=== PATIENT | female | born 1955 | race Caucasian/White ===

== ENCOUNTER → 2017-01-15 | Outpatient (CLI) | payer OTHER ==
--- NOTE | 2017-01-15 13:19 | RAD ---
EXAM DESCRIPTION: XR ABDOMEN 1 VIEW (KUB) CLINICAL HISTORY: PERSONAL HISTORY OF RENAL CALCULI COMPARISON: None Available. TECHNIQUE: KUB FINDINGS: There is no evidence of calcific density overlying the renal outlines with normal bowel gas pattern noted. Extensive pelvic phleboliths bilaterally are present and likely obscured any distal ureteral stone. The bony structures are mildly degenerative. No soft tissue masses are noted. IMPRESSION: Essentially normal abdomen with extensive pelvic phleboliths both sides of the pelvis. No definite renal calculi noted. Electronically signed by: Brody Edwards MD 01/15/2017 1:19 PM CDT
== END | disposition home or self-care (01) ==
LOC: YCFC.O 09:51
PROVIDERS: ATTEND Nurse Practitioner Family
DX: R68.2 Dry mouth, unspecified (principal); R73.09 Other abnormal glucose; R30.0 Dysuria; Z87.442 Personal history of urinary calculi; R03.0 Elevated blood-pressure reading, without diagnosis of hypertension; Z13.29 Encounter for screening for other suspected endocrine disorder

== ENCOUNTER → 2017-01-20 | Outpatient (CLI) | payer OTHER ==
--- NOTE | 2017-01-21 14:17 | MAM ---
History: Well woman exam. Date of exam: 01/20/2017 Services provided: Bilateral full field digital screening mammography. CAD, the images were reviewed with R2 computer aided detection. FINDINGS: Glandular tissue is scattered glandular contour with nodular pattern. No prior study is currently available for comparison. No dominant mass, architectural distortion or clustered microcalcification. IMPRESSION: Benign exam Recommendation: Routine annual mammography BIRAD CATEGORY: 2 BENIGN Electronically signed by: Amalia Ding MD 01/21/2017 2:17 PM CDT Workstation: [id number]
--- NOTE | 2017-01-21 17:45 | CT ---
EXAM DESCRIPTION: Abdoment/Pelvis w/o Contrast CLINICAL HISTORY: ABN FINDINGS severe left-sided abdominal pain, history of kidney stones COMPARISON: KUB January 15, 2017 TECHNIQUE: CT of the abdomen and Pelvis was performed without IV contrast. This exam was performed according to our departmental dose-optimization program, which includes automated exposure control, adjustment of the mA and/or kV according to patient size and/or use of iterative reconstruction technique. FINDINGS: The lung bases are unremarkable. There is no abdominal aortic aneurysm. No adenopathy, ascites or pneumoperitoneum. The gallbladder surgically absent. There is no hiatal hernia or gastric wall thickening. The liver, spleen, pancreas, adrenals and kidneys are unremarkable for noncontrast technique. There are multiple pelvic phleboliths, but no ureteral calculus, hydronephrosis or perinephric inflammation is noted. No dilated small bowel loops. No mesenteric inflammation or mass. No bladder wall thickening. The uterus and ovaries are not identified, please correlate with surgical history. Is a moderate to large amount of stool and gas scattered throughout the colon. Colonic diverticular disease is noted without pericolonic inflammation to suggest diverticulitis. No colonic wall thickening. The terminal ileum and ileocecal junction are unremarkable. The appendix is not identified, but there are no secondary signs of appendicitis. There are mild degenerative changes in the lumbar spine at multiple levels. No suspicious bone lesion. IMPRESSION: Moderate amount of colonic stool and gas and colonic diverticulosis, but no diverticulitis, bowel obstruction, urinary tract calculus or other acute abnormality in the abdomen or pelvis to explain left-sided abdominal pain. Electronically signed by: Milton Dyson MD 01/21/2017 5:45 PM CDT Workstation: [id number]
== END | disposition home or self-care (01) ==
LOC: YCFC.O 08:28
PROVIDERS: ATTEND Nurse Practitioner Family
DX: R93.41 Abnormal radiologic findings on diagnostic imaging of renal pelvis, ureter, or bladder (principal); Z13.29 Encounter for screening for other suspected endocrine disorder
CPT/HCPCS: 36415; 74176; 84436; 84443; G0202

== ENCOUNTER 2017-03-05 15:48 | Emergency (ER) | payer OTHER ==
--- NOTE | 2017-03-05 16:22 | ED.PDOC ---
History of Present Illness - General Chief Complaint: Cardiovascular Problem Stated Complaint: palpitations Time Seen by Provider: 03/05/17 16:21 Source: patient Exam Limitations: no limitations - History of Present Illness Initial Comments: Nataly Ocampo 61 y/o female stated that she was walking in the shelter to visit a resident had felt light headed and almost passed out that she fell and almost hit a chair.Denies chronic medical illness. Timing/Duration: 1-3 hours Severity: moderate Improving Factors: nothing Worsening Factors: nothing Associated Symptoms: chest pain - mostly pressure ,non radiating ,no diaphoresis , other - palpitations Allergies/Adverse Reactions: Allergies Esomeprazole [From Nexium] Allergy (Verified 03/05/17 16:21) Rash Home Medications: Ambulatory Orders Amlodipine Besylate 10 mg PO DAILY #20 tab 03/05/17 Thyroid [[place] Thyroid] 30 mg PO DAILY 03/05/17 Review of Systems - Review of Systems Constitutional: States: no symptoms reported EENTM: States: no symptoms reported Respiratory: States: no symptoms reported Cardiology: States: no symptoms reported, chest pain, other - near syncope Gastrointestinal/Abdominal: States: no symptoms reported Genitourinary: States: no symptoms reported Musculoskeletal: States: no symptoms reported Skin: States: no symptoms reported Neurological: States: headache - dull top of her head Endocrine: States: no symptoms reported Hematologic/Lymphatic: States: no symptoms reported Past Medical History (General) - Patient Medical History Hx Seizures: No Hx Asthma: No Hx Hypertension: No Surgical History: appendectomy, cholecystectomy, other - hysterectomy foot ,back Family Medical History - Family History Mother Family History: No Known Physical Exam - Physical Exam General Appearance: Alert, No apparent distress Eye Exam: bilateral normal Ears, Nose, Throat: hearing grossly normal, normal ENT inspection, normal pharynx Neck: non-tender, full range of motion, supple Respiratory: chest non-tender, lungs clear Cardiovascular/Chest: normal peripheral pulses, regular rate, rhythm, no edema, no gallop, no murmur Peripheral Pulses: radial,right: 1+, radial,left: 1+ Gastrointestinal/Abdominal: normal bowel sounds, non tender, soft, no organomegaly, no pulsatile mass Back Exam: normal inspection, no CVA tenderness, no vertebral tenderness Neurologic: no motor/sensory deficits, alert, oriented x 3, other - pronator drift negative,Romberg negative Skin Exam: normal color, warm/dry Progress - Progress Progress: 03/05/17 20:[address] head for her headache but stated easing up. - Results/Orders Results/Orders: 03/05/17 16:21 Telemetry .ONCE EKG Stat Pulse Ox Stat URINALYSIS Stat Laboratory Results - last 24 hr 03/05/17 03/05/17 03/05/17 16:00 16:00 16:00 WBC 6.3 RBC 4.77 Hgb 14.9 Hct 43.4 MCV 91.1 MCH 31.3 H MCHC 34.4 RDW 13.0 Plt Count 198 MPV 8.2 Absolute Neuts (auto) 3.80 Absolute Lymphs (auto) 1.70 Absolute Monos (auto) 0.60 Absolute Eos (auto) 0.20 Absolute Basos (auto) 0.00 Neutrophils % 59.8 Lymphocytes % 27.1 Monocytes % 9.8 H Eosinophils % 2.6 Basophils % 0.7 PT 10.3 INR 0.910 PTT (SP) 29.1 D-Dimer, Quantitative < 230 Sodium 141 Potassium 3.6 Chloride 106 Carbon Dioxide 25 Anion Gap 13.6 BUN 19 H Creatinine 0.92 BUN/Creatinine Ratio 20.7 H Random Glucose 122 H Serum Osmolality 284.8 Calcium 9.3 Magnesium 1.9 Total Bilirubin 0.9 Direct Bilirubin 0.1 Indirect Bilirubin 0.8 AST 29 ALT 34 Alkaline Phosphatase 65 Creatine Kinase 53 CK-MB (CK-2) 1.1 CK-MB (CK-2) % Not Reportable Troponin I < 0.02 B-Natriuretic Peptide 16.4 Serum Total Protein 7.3 Albumin 3.9 TSH 1.89 Urine Opiates Screen Urine Barbiturates Ur Phencyclidine Scrn U Amphetamin/Meth Scrn U Benzodiazepines Scrn U Cocaine Metab Screen U Cannabinoids Screen 03/05/17 16:29 WBC RBC Hgb Hct MCV MCH MCHC RDW Plt Count MPV Absolute Neuts (auto) Absolute Lymphs (auto) Absolute Monos (auto) Absolute Eos (auto) Absolute Basos (auto) Neutrophils % Lymphocytes % Monocytes % Eosinophils % Basophils % PT INR PTT (SP) D-Dimer, Quantitative Sodium Potassium Chloride Carbon Dioxide Anion Gap BUN Creatinine BUN/Creatinine Ratio Random Glucose Serum Osmolality Calcium Magnesium Total Bilirubin Direct Bilirubin Indirect Bilirubin AST ALT Alkaline Phosphatase Creatine Kinase CK-MB (CK-2) CK-MB (CK-2) % Troponin I B-Natriuretic Peptide Serum Total Protein Albumin TSH Urine Opiates Screen Negative Urine Barbiturates Negative Ur Phencyclidine Scrn Negative U Amphetamin/Meth Scrn Negative U Benzodiazepines Scrn Negative U Cocaine Metab Screen Negative U Cannabinoids Screen Negative Laboratory Last Values WBC 6.3 K/mm3 (4.8-10.8) 03/05/17 16:00 RBC 4.77 M/mm3 (4.20-5.40) 03/05/17 16:00 Hgb 14.9 gm/dL (12.0-16.0) 03/05/17 16:00 Hct 43.4 % (36.0-47.0) 03/05/17 16:00 MCV 91.1 fl (81.0-99.0) 03/05/17 16:00 MCH 31.3 pg (27.0-31.0) H 03/05/17 16:00 MCHC 34.4 g/dL (33.0-37.0) 03/05/17 16:00 RDW 13.0 % (11.5-14.5) 03/05/17 16:00 Plt Count 198 K/mm3 (130-400) 03/05/17 16:00 MPV 8.2 fl (7.40-10.4) 03/05/17 16:00 Absolute Neuts (auto) 3.80 K/uL (1.8-6.8) 03/05/17 16:00 Absolute Lymphs (auto) 1.70 K/uL (1.0-3.4) 03/05/17 16:00 Absolute Monos (auto) 0.60 K/uL (0.2-0.8) 03/05/17 16:00 Absolute Eos (auto) 0.20 K/uL (0.0-0.4) 03/05/17 16:00 Absolute Basos (auto) 0.00 K/uL (0.0-0.1) 03/05/17 16:00 Neutrophils % 59.8 % (42.0-78.0) 03/05/17 16:00 Lymphocytes % 27.1 % (20.0-50.0) 03/05/17 16:00 Monocytes % 9.8 % (2.0-9.0) H 03/05/17 16:00 Eosinophils % 2.6 % (1.0-5.0) 03/05/17 16:00 Basophils % 0.7 % (0.0-2.0) 03/05/17 16:00 PT 10.3 SECONDS (9.4-12.5) 03/05/17 16:00 INR 0.910 03/05/17 16:00 PTT (SP) 29.1 SECONDS (25.1-36.5) 03/05/17 16:00 D-Dimer, Quantitative < 230 ng/mL (0-230) 03/05/17 16:00 Sodium 141 mmol/L (135-145) 03/05/17 16:00 Potassium 3.6 mmol/L (3.6-5.0) 03/05/17 16:00 Chloride 106 mmol/L (101-111) 03/05/17 16:00 Carbon Dioxide 25 mmol/L (21-31) 03/05/17 16:00 Anion Gap 13.6 (12-18) 03/05/17 16:00 BUN 19 mg/dL (7-18) H 03/05/17 16:00 Creatinine 0.92 mg/dL (0.6-1.3) 03/05/17 16:00 BUN/Creatinine Ratio 20.7 (10-20) H 03/05/17 16:00 Random Glucose 122 mg/dL (70-105) H 03/05/17 16:00 Serum Osmolality 284.8 mOsm/L (275-295) 03/05/17 16:00 Calcium 9.3 mg/dL (8.4-10.2) 03/05/17 16:00 Magnesium 1.9 mg/dL (1.8-2.5) 03/05/17 16:00 Total Bilirubin 0.9 mg/dL (0.2-1.0) 03/05/17 16:00 Direct Bilirubin 0.1 mg/dL (0-0.2) 03/05/17 16:00 Indirect Bilirubin 0.8 mg/dL (0.2-0.8) 03/05/17 16:00 AST 29 IU/L (10-42) 03/05/17 16:00 ALT 34 IU/L (10-60) 03/05/17 16:00 Alkaline Phosphatase 65 IU/L (42-121) 03/05/17 16:00 Creatine Kinase 53 IU/L (26-140) 03/05/17 16:00 CK-MB (CK-2) 1.1 ng/mL (0.0-4.4) 03/05/17 16:00 CK-MB (CK-2) % Not Reportable 03/05/17 16:00 Troponin I < 0.02 ng/mL (0.01-0.05) 03/05/17 19:11 B-Natriuretic Peptide 16.4 pg/ml (0-100) 03/05/17 16:00 Serum Total Protein 7.3 gm/dL (6.4-8.2) 03/05/17 16:00 Albumin 3.9 g/dl (3.2-5.5) 03/05/17 16:00 TSH 1.89 uIU/mL (0.34-5.60) 03/05/17 16:00 Urine Opiates Screen Negative ng/mL (2000) 03/05/17 16:29 Urine Barbiturates Negative ng/mL (200) 03/05/17 16:29 Ur Phencyclidine Scrn Negative ng/mL (25) 03/05/17 16:29 U Amphetamin/Meth Scrn Negative ng/mL (1000) 03/05/17 16:29 U Benzodiazepines Scrn Negative ng/mL (200) 03/05/17 16:29 U Cocaine Metab Screen Negative ng/mL (300) 03/05/17 16:29 U Cannabinoids Screen Negative ng/mL (50) 03/05/17 16:29 Vital Signs - 8 hr 03/05/17 03/05/17 03/05/17 15:50 16:48 17:48 Temperature 99.2 F Pulse Rate [ 97 H 92 H 88 Apical] Respiratory 18 18 18 Rate Blood Pressure 160/99 154/86 152/79 [Left Arm] O2 Sat by Pulse 99 99 100 Oximetry 03/05/17 03/05/17 18:48 19:54 Temperature Pulse Rate [ 86 74 Apical] Respiratory 18 18 Rate Blood Pressure 146/88 132/90 [Left Arm] O2 Sat by Pulse 99 99 Oximetry - EKG/XRAY/CT EKG: Sinus, Tachy Comments: heart rate 102 - Additional EKG/XRAY/Consults XRAY #2: chest - no acute abnormalities ,tortous aorta Departure - Departure Clinical Impression: Heart palpitations, Syncope, near Chest pain Qualifiers: Chest pain type: unspecified Qualified Code(s): R07.9 - Chest pain, unspecified Hypertension Qualifiers: Hypertension type: essential hypertension Qualified Code(s): I10 - Essential ( primary) hypertension Time of Disposition: 20:30 Disposition: Discharge to Home or Self Care Condition: Good Departure Forms: ED Discharge - Pt. Copy, Patient Portal Self Enrollment Instructions: The DASH Diet, Recommendations to Help Prevent High Blood Pressure, High Blood Pressure Linked to Inflammation, DI for High Blood Pressure , DI for Palpitations Referrals: Kendal Steele NP [Primary Care Provider] - 1-2 Weeks Prescriptions: Amlodipine Besylate 10 mg PO DAILY #20 tab Home Medications: Ambulatory Orders Amlodipine Besylate 10 mg PO DAILY #20 tab 03/05/17 Thyroid [[place] Thyroid] 30 mg PO DAILY 03/05/17 Additional Instructions: RETURN TO EMERGENCY ROOM NEEDED;Follow up with primary md 03/08/2017 call for appointment
[2017-03-05] MEDS ORDERED: SODIUM CHLORIDE 0.9% 1000ML 1,000 ML IVS ONE (16:23)
--- NOTE | 2017-03-05 16:49 | RAD ---
EXAM: Chest,1 View CLINICAL INDICATION: 61-year-old female with palpitations. TECHNIQUE: Single view, AP portable chest was obtained. COMPARISON: None. FINDINGS: Examination findings are limited secondary to lack of inclusion of the bilateral lung apices. Apical pneumothorax cannot be excluded. Unremarkable cardiac and mediastinal silhouette. Heart size is normal. Tortuous thoracic aorta. Lungs are clear without focal opacity, gross pneumothorax or pleural effusions. The visualized bones are within normal limits. IMPRESSION: No acute cardiopulmonary abnormalities. Electronically signed by: Daniela Huang MD 03/05/2017 4:48 PM CDT Workstation: [id number]
[2017-03-05] MEDS ORDERED: amLODIPine BESYLATE 5 MG TAB PO ONE (19:02)
[2017-03-05 20:58] VITALS: BP 132/91; TEMP 98.5; O2SAT 98
== END 2017-03-05 20:52 | disposition home or self-care (01) ==
LOC: ER 15:48
DX: R07.9 Chest pain, unspecified (principal); R55 Syncope and collapse; R00.2 Palpitations; I10 Essential (primary) hypertension; Z88.8 Allergy status to other drugs, medicaments and biological substances
CPT/HCPCS: 36415; 71010; 80048; 80076; 80307; 82550; 82553; 83880; 84443; 84484; 85025; 85379; 85610; 85730; 93005; 96360; 99284; J7030

== ENCOUNTER → 2017-03-08 | Outpatient (CLI) | payer OTHER | END | disposition home or self-care (01) | LOC: YCFC.O 09:59 | PROVIDERS: ATTEND Nurse Practitioner Family | DX: I20.9 Angina pectoris, unspecified (principal); I10 Essential (primary) hypertension; E03.9 Hypothyroidism, unspecified ==

== ENCOUNTER → 2017-09-27 | Outpatient (CLI) | payer OTHER | LOC: LAB.O 18:51 | PROVIDERS: ATTEND Nurse Practitioner Family | DX: J06.9 Acute upper respiratory infection, unspecified (principal) ==

== ENCOUNTER → 2018-05-06 | Outpatient (CLI) | payer OTHER | LOC: LAB.O 08:15 | PROVIDERS: ATTEND Nurse Practitioner Family | DX: E03.9 Hypothyroidism, unspecified (principal); R03.0 Elevated blood-pressure reading, without diagnosis of hypertension ==

== ENCOUNTER → 2018-05-09 | Outpatient (CLI) | payer OTHER ==
--- NOTE | 2018-05-11 10:50 | MAM ---
EXAM DESCRIPTION: 3D Screening BILATERAL : Digital Mammography. CLINICAL HISTORY: 63 years Female SCREENING . No complaints and no personal history of breast cancer. However mother and sister with breast cancer. Childbirth. Postmenopausal over 40 years. No HRT. Bilateral benign breast biopsies. Lifetime risk of developing breast cancer (Tyrer-Cuzick model)(%): 37.2. COMPARISON: 2-D digital screening bilateral study 01/20/2017.. No prior reports available. TECHNIQUE: Bilateral CC and MLO projection full-field images, Digital tomosynthesis mammographic technique. Bilateral digital 2-D full-field MLO images. CAD not utilized. FINDINGS: The breast parenchymal density pattern is: Scattered areas of fibroglandular density. No skin thickening or nipple retraction. Bilateral solitary microcalcifications. Posterior left breast skin mole. Left nipple is inverted. No new focal, stellate mass or density, focal asymmetry , and no suspicious microcalcifications bilaterally. Stable mammograms compared to prior study. Taking into account, differences in mammographic technique. IMPRESSION: Benign exam. BIRAD CATEGORY: 2 BENIGN FINDINGS. RECOMMENDATIONS: FOLLOW UP: Routine digital bilateral screening, one year interval from April 2018. Written communication explaining the IMPRESSION and follow-up, will be mailed to the patient and referring health care provider. According to the [employer], yearly mammograms are recommended starting at age 40 and continuing as long as a woman is in good health. Any breast change noted on a breast self-exam should be reported promptly to the patient's healthcare provider. Breast MRI is recommended for women with an approximately 20-25% or greater lifetime risk of breast cancer, including women with a strong family history of breast or ovarian cancer and women who have been treated for Hodgkin's disease. A negative mammographic report should not delay tissue diagnosis in patients with significant clinical history or physical findings. Extremely dense breast tissue limits the sensitivity of digital mammography. Electronically signed by: Paul Tabares MD 05/11/2018 10:48 AM CDT
== END ==
LOC: MAMMO 08:03
PROVIDERS: ATTEND Nurse Practitioner Family
DX: Z12.31 Encounter for screening mammogram for malignant neoplasm of breast (principal)

== ENCOUNTER → 2019-10-04 | Outpatient (CLI) | payer OTHER ==
--- NOTE | 2019-10-09 15:45 | MAM ---
EXAM DESCRIPTION: 3D Screening BILATERAL : Digital Mammography. CLINICAL HISTORY: 64 years Female SCREENING . No personal history of breast cancer no complaints. Mother and sister with breast cancer, ages 75 and 55 respectively. Menarche age 14. Childbirth age 23. Menopause age 25. Bilateral benign breast biopsies. No HRT. Lifetime risk of developing breast cancer (Tyrer-Cuzick model)(%): 30.0 COMPARISON: Bilateral screening digital breast tomosynthesis April 2018. 2-D digital screening bilateral mammography January 2017. TECHNIQUE: Bilateral CC and MLO projection full-field images, digital tomosynthesis mammographic technique. Bilateral digital 2-D full-field MLO images. CAD available for 2-D images. FINDINGS: The breast parenchymal density pattern is: Scattered areas of fibroglandular density. No skin thickening or nipple retraction. Vascular calcifications. Posterior skin mole marker left breast. Circumscribed soft tissue mass posterior and inferior to the left nipple stable. No new focal, stellate mass or density, focal asymmetry , and no suspicious microcalcifications bilaterally. Stable mammograms compared to prior study. IMPRESSION: Benign exam. BIRAD CATEGORY: 2 BENIGN FINDINGS. RECOMMENDATIONS: FOLLOW UP: Routine digital bilateral mammographic screening, one year interval from September 2019. Optional follow-up: Due to the elevated lifetime risk (greater than 20%) of this patient developing breast cancer, consider bilateral breast MRI without and with gadolinium IV contrast. Please see below*. Written communication explaining the IMPRESSION and follow-up, will be mailed to the patient and referring health care provider. According to the [employer], yearly mammograms are recommended starting at age 40 and continuing as long as a woman is in good health. Any breast change noted on a breast self-exam should be reported promptly to the patient's healthcare provider. *Breast MRI is recommended for women with an approximately 20-25% or greater lifetime risk of breast cancer, including women with a strong family history of breast or ovarian cancer and women who have been treated for Hodgkin's disease. A negative mammographic report should not delay tissue diagnosis in patients with significant clinical history or physical findings. Extremely dense breast tissue limits the sensitivity of digital mammography. Electronically signed by: Paul Tabares MD 10/09/2019 3:43 PM [employer]
== END ==
LOC: MAMMO 10:26
PROVIDERS: ATTEND Nurse Practitioner Family
DX: Z12.31 Encounter for screening mammogram for malignant neoplasm of breast (principal)